=== PATIENT | female | born 1955 | race Caucasian/White ===

== ENCOUNTER → 2021-12-19 17:04 | Outpatient (CLI) | payer MEDICARE, SELFPAY ==
[2021-12-19 18:10] LABS: Basophils % 0.4 % (0.1-2.0); Eosinophils # 0.1 K/mm3 (0.0-0.4); Eosinophils % 0.6 % (0.1-12.0); Hematocrit 39.3 % (37.0-47.0); Hemoglobin 12.7 g/dL (12.2-16.2); Lymphocytes # 1.6 K/mm3 (0.7-4.5); Lymphocytes % 13.4 % (10-50); Mean Corpuscular HGB Conc 32.3 g/dL (31.8-35.4); Mean Corpuscular Hemoglobin 32.3 pg (27.0-31.2); Mean Corpuscular Volume 99.9 fl (81-99); Mean Platelet Volume 7.7 fl (7.4-10.4); Monocytes # 0.3 K/mm3 (0.1-1.0); Monocytes % 2.7 % (1.7-9.3); Platelet Count 268 K/mm3 (142-424); Red Blood Count 3.93 M/mm3 (4.20-5.40); Red Cell Distribution Width 13.6 % (11.5-17.5); White Blood Count 12.1 K/mm3 (4.8-10.8)
[2021-12-19 18:17] LABS: Alanine Aminotransferase 22 U/L (12-78); Albumin/Globulin Ratio 1.1 (1.1-1.8); Alkaline Phosphatase 123 U/L (38-126); Aspartate Amino Transferase 35 U/L (14-36); Bilirubin,Total 0.7 mg/dl (0.2-1.3); Blood Urea Nitrogen 18 mg/dl (7-17); Calcium 9.2 mg/dl (8.4-10.2); Carbon Dioxide 30 mmol/L (22.0-30.0); Chloride 98 mmol/L (98-107); Chol/HDL Ratio 3.6 (1-3.5); Cholesterol 185 mg/dl (140-200); Estimated Glomerular Filt Rate 72 ml/min (>60); GFR (African American) 87 ML/MIN (>60); Globulin 3.7 g/dL (1.3-3.2); Glucose 120 mg/dl (74-100); HDL Cholesterol 52 mg/dl (40-60); Sodium 136 mmol/L (136-145); Total Protein,Serum 7.7 g/dl (6.3-8.2); Triglycerides 135 mg/dl (30-150); VLDL Cholesterol 27 mg/dL (0-40)
[2021-12-19 18:28] LABS: Direct LDL Cholesterol 77.35 mg/dL (100-129)
[2021-12-19 18:33] LABS: Free T4 (Free Thyroxine) 1.11 ng/dl (0.78-2.19)
[2021-12-19 18:48] LABS: Thyroid Stimulating Hormone 0.17 uIU/mL (0.465-4.68)
[2021-12-26 17:13] LABS: 1,25 Dihydroxy Vitamin D 31 pg/mL (.); 1,25-Dihydroxy, Vitamin D-2 11 pg/mL (.); 1,25-Dihydroxy, Vitamin D-3 20 pg/mL (.)
== END ==
PROVIDERS: PCP Emergency Medicine; Visit Provider Emergency Medicine
DX: F32.A Depression, unspecified (principal); J44.9 Chronic obstructive pulmonary disease, unspecified; Z79.899 Other long term (current) drug therapy
CPT/HCPCS: 80053; 80061; 82652; 84439; 84443; 85025

== ENCOUNTER → 2022-04-10 14:10 | Outpatient (CLI) | payer MEDICARE, SELFPAY ==
[2022-04-10 18:09] LABS: Amphetamine/Metha Screen,Urine Negative ng/ml (<1000)
[2022-04-10 18:10] LABS: Barbiturates Screen,Urine Negative ng/ml (<200)
[2022-04-10 18:11] LABS: Benzodiazepines Screen,Urine Negative ng/ml (<200)
[2022-04-10 18:13] LABS: Cannabinoid Screen,Urine Negative ng/ml (<50)
[2022-04-10 18:14] LABS: Cocaine Screen,Urine Negative ng/ml (<300); Methadone Screen,Urine Negative ng/ml (<300)
[2022-04-10 18:15] LABS: Opiate Screen,Urine Negative ng/ml (<300); Phencyclidine Screen,Urine Negative ng/ml (<25)
== END ==
PROVIDERS: PCP Emergency Medicine; Visit Provider Emergency Medicine
DX: Z79.899 Other long term (current) drug therapy (principal)
CPT/HCPCS: 80305

== ENCOUNTER 2022-11-11 15:12 | Emergency (ER) | payer MEDICARE, MEDICAID, SELFPAY ==
[2022-11-11 15:12] VITALS: BP 153/57; PULSE 81; RESP 23; TEMP 36.7; O2SAT 96; BMI 18.5
--- NOTE | 2022-11-11 15:15 | PC.NURSE ---
Notified attending patient is getting more and more pain as she sits. No new orders
--- NOTE | 2022-11-11 15:20 | ECG_ITS ---
APPROVED REPORT Exam: Resting ECG HR:73 bpm ECG Measurements Heart Rate 73 AXES LA 143 P 69 QRSd 110 QRS 82 QT 390 T 73 QTc 415 Conclusion SINUS RHYTHM LEFT ATRIAL abnormality INCOMPLETE RIGHT BUNDLE BRANCH BLOCK [90+ ms QRS DURATION, TERMINAL R IN V1/V2, 40+ ms S IN I/aVL/V4/V5/V6] BORDERLINE ECG UNCONFIRMED REPORT Electronically signed by : Marcelo Treadwell MD 11/12/2022 20:10:08
--- NOTE | 2022-11-11 15:52 | PC.NURSE ---
Attending notified patient still needs to be seen. Attending states, I'm busy right now.
--- NOTE | 2022-11-11 16:00 | HMH.ITSTN ---
went to get patient for xrays and CT and she was crying and in pain from a fall and refused to move until she could have something for pain, I advised nurse and will hold till she is seen by
--- NOTE | 2022-11-11 16:29 | PC.NURSE ---
Patient requesting pain medication prior to having her scans completed. Medicated per JUL. CT notified
--- NOTE | 2022-11-11 16:41 | PC.NURSE ---
Patient has friend at bedside and they are both concerned that the doctor has yet to be at bedside for evaluation. She is asking for stronger pain medications that what has been given. Patient is very upset and requesting to leave AMA. I went out to speak to the attending and he states, I am busying doing something else right now. Patient refused to sign AMA for.
--- NOTE | 2022-11-11 16:48 | PC.NURSE ---
Patient was wheeled out via wheelchair to the vehicle being driven by her friend.
[2022-11-11 16:49] VITALS: BP 150/57; PULSE 79; RESP 22; TEMP 36.7; O2SAT 97
== END 2022-11-11 16:49 | disposition left against medical advice (07) ==
PROVIDERS: Emergency Provider Emergency Medicine; PCP Emergency Medicine
DX: I45.19 Other right bundle-branch block (principal); J44.9 Chronic obstructive pulmonary disease, unspecified; F41.9 Anxiety disorder, unspecified; F32.A Depression, unspecified; F17.210 Nicotine dependence, cigarettes, uncomplicated
CPT/HCPCS: 93005; 99283

== ENCOUNTER 2022-11-19 12:38 | Emergency (ER) | payer MEDICARE, MEDICAID, SELFPAY ==
[2022-11-19 12:56] VITALS: BMI 18.2
[2022-11-19 12:57] VITALS: BP 175/77; PULSE 83; RESP 20; TEMP 36.7; O2SAT 97; BMI 18.2
--- NOTE | 2022-11-19 12:58 | HMH.EDGENADL ---
Discharge Plan Disposition Patient Disposition: Home, Self-Care Condition: Fair Prescriptions Prescriptions: New lidocaine [Lidoderm] 5 % adhesive patch,medicated 1 patch topical DAILY Qty: 15 0RF Rx Instructions: leave on most painful area for up to 12 hrs No Action albuterol sulfate 90 mcg/actuation HFA aerosol inhaler 1 inh IH QID buprenorphine-naloxone 8-2 mg tablet, sublingual 1.5 tab SL DAILY clonazepam [Klonopin] 0.5 mg tablet 0.5 mg PO TID amlodipine [Norvasc] 5 mg tablet 5 mg PO QHS lisinopril 10 mg tablet 10 mg PO QAM bupropion HCl 75 mg tablet 75 mg PO BID Referrals Follow up/Referrals: Tani Flores MD [Primary Care Provider] - See instructions Clinical Impressions Clinical Impression: Multiple fractures of ribs Discharge ED Provider: Jay Price General Adult HPI General Chief complaint: Fall Stated complaint: Fall 11/11 RT rib pain Time Seen by Provider: 11/19/22 13:24 History of Present Illness HPI narrative: This 67-year-old white female who a mechanical ground-level fall 1 week ago and is complaining of right lower rib pain. Patient denies shortness of breath no bruising patient said it hurts like it is broken. Patient says she has broken her ribs before Related Data Home Medications Medication Instructions Recorded Confirmed albuterol sulfate 90 mcg/actuation 1 inh inhalation QID Breathing 12/19/21 11/19/22 aerosol inhaler problems buprenorphine 8 mg-naloxone 2 mg 1.5 tab sublingual DAILY Chronic 12/19/21 11/19/22 sublingual tablet Pain amlodipine 5 mg tablet (Norvasc) 5 mg PO QHS High blood pressure 11/11/22 11/19/22 bupropion HCl 75 mg tablet 75 mg PO BID Mood 11/11/22 11/19/22 clonazepam 0.5 mg tablet (Klonopin) 0.5 mg PO TID Anxiety 11/11/22 11/19/22 lisinopril 10 mg tablet 10 mg PO QAM High blood pressure 11/11/22 11/19/22 Previous Rx's Medication Instructions Recorded lidocaine 5 % topical patch 1 patch topical DAILY #15 ea 11/19/22 (Lidoderm) Allergies Allergy/AdvReac Type Severity Reaction Status Date / Time nalbuphine [From Nubain] Allergy Mild crazy Verified 11/19/22 11:39 N saids Allergy Severe ulcer Uncoded 08/19/22 15:56 PFSH [facility] Disclaimer: The information contained in this section may have been updated after the patient was seen, as this information can be updated by other users. Medical History Anxiety COPD (chronic obstructive pulmonary disease) Depressed Hernia Surgical History H/O section H/O tubal ligation History of cholecystectomy Hx of appendectomy Family History Other Family history of myocardial infarction Social History Smoking Status: Never smoker alcohol intake: never substance use type: former substance user and painkillers current occupational status: disabled Travel in the last 8 weeks: None ROS Obtained: Yes All systems reviewed & no additional complaints except as documented Skin no rash or lesions HEENT no runny nose sore throat Pulmonary no cough or shortness of breath Cardiovascular no chest pain pressure heaviness GI no abdominal pain nausea or vomiting no dysuria pyuria hematuria Musculoskeletal no neck or back pain Endocrine no polydipsia polyuria or polyphasia Psych no SI or HI The rest of the systems were reviewed and found to be negative Physical Exam Narrative Physical exam: Skin: Warm and dry HEENT: Normocephalic atraumatic extract muscles are intact pupils are equal and reactive to light Neck: Supple nontender Lungs: Clear to auscultation Heart: Regular rate and rhythm Chest: There is reproducible right-sided chest wall tenderness no crepitus or step-off lesions Abdomen: NABS soft nontender Extremities: No
--- NOTE | 2022-11-19 12:59 | CT_ITS ---
FINAL REPORT CLINICAL HISTORY: trauma, fall, right sided rib pain FINDINGS: Axial images were obtained from the lung apex to the mid abdomen by computed tomography. Coronal reformatted images were obtained. This study was performed with techniques to keep radiation doses as low as reasonably achievable, (ALARA). Individualized dose reduction techniques using automated exposure control or adjustment of mA and/or kV according to the patient's size were employed. There is no axillary adenopathy. There is no hilar or mediastinal adenopathy. Heart size is normal. There is dense calcification at the aortic arch. There is dense calcification in the coronary arteries. There is no pericardial or pleural effusion. Limited images of the upper abdomen demonstrate a 2.9 x 1.8 cm right adrenal mass favoring an adenoma. There is chronic scarring in the lung bases. No suspicious infiltrate or nodule is identified. There is no pneumothorax. There are nondisplaced fractures of the right 3rd, 4th and 5th anterior ribs. IMPRESSION: Right anterior 3rd, 4th, and 5th rib fractures without pneumothorax. Right adrenal mass favoring an adenoma. Reviewed, Interpreted and Dictated by Bandar Huerta MD Transcribed by Yoandy Rojas Authenticated and . [facility]
[2022-11-19 13:00] VITALS: BP 179/73; PULSE 75; O2SAT 96
[2022-11-19 13:30] VITALS: BP 173/66; PULSE 71; O2SAT 97
[2022-11-19 14:00] VITALS: BP 149/71; PULSE 72; O2SAT 95
[2022-11-19 14:15] VITALS: PULSE 69; O2SAT 95
--- NOTE | 2022-11-19 14:34 | PC.NURSE ---
Rounded on patient; pt sitting up on ED stretcher holding pillow in between her arms. She reports no needs at this time, call ndiaye within reach. She is aware that we are still waiting on xray results at this time.
[2022-11-19 15:28] VITALS: BP 164/97; PULSE 72; RESP 20; TEMP 36.8; O2SAT 96
== END 2022-11-19 15:29 | disposition home or self-care (01) ==
PROVIDERS: Emergency Provider Emergency Medicine; PCP Emergency Medicine
DX: S22.41XA Multiple fractures of ribs, right side, initial encounter for closed fracture (principal); J44.9 Chronic obstructive pulmonary disease, unspecified; F41.9 Anxiety disorder, unspecified; F32.A Depression, unspecified; W19.XXXA Unspecified fall, initial encounter
CPT/HCPCS: 71250; 80053; 80061; 82306; 84439; 84443; 85025; 99284

== ENCOUNTER → 2022-11-19 15:01 | Outpatient (CLI) | payer MEDICARE, MEDICAID, SELFPAY ==
[2022-11-19 12:34] LABS: Basophils # 0.1 K/mm3 (0-0.2); Basophils % 0.7 % (0.1-2.0); Eosinophils # 0.2 K/mm3 (0.0-0.4); Eosinophils % 2.1 % (0.1-12.0); Hemoglobin 13.1 g/dL (12.2-16.2); Lymphocytes # 3.1 K/mm3 (0.7-4.5); Lymphocytes % 36.2 % (10-50); Mean Corpuscular HGB Conc 31.9 g/dL (31.8-35.4); Mean Corpuscular Hemoglobin 31.6 pg (27.0-31.2); Mean Platelet Volume 7.5 fl (7.4-10.4); Monocytes # 0.3 K/mm3 (0.1-1.0); Neutrophils # 4.9 K/mm3 (1.8-7.8); Neutrophils % 58.1 % (37.0-80.0); Platelet Count 326 K/mm3 (142-424); Red Blood Count 4.14 M/mm3 (4.20-5.40); Red Cell Distribution Width 13.4 % (11.5-17.5); White Blood Count 8.5 K/mm3 (4.8-10.8)
[2022-11-19 13:07] LABS: Alanine Aminotransferase 22 U/L (12-78); Albumin Level 4.5 g/dl (3.5-5.0); Albumin/Globulin Ratio 1.4 (1.1-1.8); Alkaline Phosphatase 128 U/L (38-126); Anion Gap 17.8 mEq/L (5-15); Aspartate Amino Transferase 25 U/L (14-36); Bilirubin,Total 0.3 mg/dl (0.2-1.3); Blood Urea Nitrogen 21 mg/dl (7-17); Calcium 9.5 mg/dl (8.4-10.2); Carbon Dioxide 24 mmol/L (22.0-30.0); Chloride 103 mmol/L (98-107); Chol/HDL Ratio 3.4 (1-3.5); Cholesterol 193 mg/dl (140-200); Estimated Glomerular Filt Rate 62 ml/min (>60); GFR (African American) 76 ML/MIN (>60); Globulin 3.3 g/dL (1.3-3.2); Glucose 113 mg/dl (74-100); HDL Cholesterol 56 mg/dl (40-60); Potassium 3.8 mmoL/L (3.5-5.1); Sodium 141 mmol/L (136-145); Total Protein,Serum 7.8 g/dl (6.3-8.2); Triglycerides 138 mg/dl (30-150); VLDL Cholesterol 28 mg/dL (0-40)
[2022-11-19 13:25] LABS: Free T4 (Free Thyroxine) 1.26 ng/dl (0.78-2.19)
[2022-11-19 13:27] LABS: 25-OH Vitamin D, Total < 12.8 ng/mL (30-100)
[2022-11-19 13:28] LABS: Direct LDL Cholesterol 85.89 mg/dL (100-129)
[2022-11-19 13:39] LABS: Thyroid Stimulating Hormone 0.61 uIU/mL (0.465-4.68)
== END ==
PROVIDERS: PCP Emergency Medicine; Visit Provider Emergency Medicine
DX: J44.9 Chronic obstructive pulmonary disease, unspecified (principal); I10 Essential (primary) hypertension; E55.9 Vitamin D deficiency, unspecified
CPT/HCPCS: 80053; 80061; 82306; 84439; 84443; 85025

== ENCOUNTER → 2023-03-07 09:19 | Outpatient (CLI) | payer MEDICARE, MEDICAID, SELFPAY ==
[2023-03-07 22:30] LABS: Amphetamine/Metha Screen,Urine Negative ng/ml (<1000)
[2023-03-07 22:31] LABS: Barbiturates Screen,Urine Negative ng/ml (<200)
[2023-03-07 22:32] LABS: Benzodiazepines Screen,Urine Negative ng/ml (<200); Cannabinoid Screen,Urine Negative ng/ml (<50)
[2023-03-07 22:33] LABS: Cocaine Screen,Urine Negative ng/ml (<300)
[2023-03-07 22:34] LABS: Methadone Screen,Urine Negative ng/ml (<300); Opiate Screen,Urine Negative ng/ml (<300)
[2023-03-07 22:35] LABS: Phencyclidine Screen,Urine Negative ng/ml (<25)
== END ==
PROVIDERS: PCP Emergency Medicine; Visit Provider Emergency Medicine
DX: G89.29 Other chronic pain (principal)
CPT/HCPCS: 80305

== ENCOUNTER → 2023-05-05 23:54 | Outpatient (CLI) | payer MEDICARE, MEDICAID, SELFPAY ==
[2023-05-05 20:36] LABS: Benzodiazepines Screen,Urine Negative ng/ml (<200)
[2023-05-05 20:37] LABS: Amphetamine/Metha Screen,Urine Negative ng/ml (<1000)
[2023-05-05 20:38] LABS: Barbiturates Screen,Urine Negative ng/ml (<200); Cannabinoid Screen,Urine Negative ng/ml (<50)
[2023-05-05 20:39] LABS: Methadone Screen,Urine Negative ng/ml (<300)
[2023-05-05 20:40] LABS: Opiate Screen,Urine Negative ng/ml (<300)
[2023-05-05 20:41] LABS: Phencyclidine Screen,Urine Negative ng/ml (<25)
[2023-05-05 20:53] LABS: Cocaine Screen,Urine Negative ng/ml (<300)
== END ==
PROVIDERS: PCP Family Medicine; Visit Provider Family Medicine
DX: Z79.899 Other long term (current) drug therapy (principal)
CPT/HCPCS: 80305

== ENCOUNTER 2023-08-19 21:36 | Outpatient (CLI) | payer MEDICARE, MEDICAID, SELFPAY ==
[2023-08-19 19:14] LABS: Basophils # 0.1 K/mm3 (0-0.2); Basophils % 1.1 % (0.1-2.0); Eosinophils # 0.1 K/mm3 (0.0-0.4); Eosinophils % 0.8 % (0.1-12.0); Hematocrit 41.3 % (37.0-47.0); Hemoglobin 13.1 g/dL (12.2-16.2); Lymphocytes % 16.7 % (10-50); Mean Corpuscular HGB Conc 31.7 g/dL (31.8-35.4); Mean Corpuscular Hemoglobin 32.8 pg (27.0-31.2); Mean Corpuscular Volume 103.5 fl (81-99); Mean Platelet Volume 9.1 fl (7.4-10.4); Monocytes # 0.5 K/mm3 (0.1-1.0); Monocytes % 3.8 % (1.7-9.3); Neutrophils # 9.5 K/mm3 (1.8-7.8); Neutrophils % 77.6 % (37.0-80.0); Platelet Count 356 K/mm3 (142-424); Red Blood Count 3.99 M/mm3 (4.20-5.40); Red Cell Distribution Width 13.8 % (11.5-17.5); White Blood Count 12.3 K/mm3 (4.8-10.8)
[2023-08-19 19:31] LABS: Chloride 102 mmol/L (98-107)
[2023-08-19 19:32] LABS: Potassium 4.1 mmoL/L (3.5-5.1); Sodium 139 mmol/L (136-145)
[2023-08-19 19:33] LABS: Hemoglobin A1C 5.3 % (4.0-6.0)
[2023-08-19 19:34] LABS: Alkaline Phosphatase 120 U/L (38-126); Bilirubin,Total 0.7 mg/dl (0.2-1.3)
[2023-08-19 19:35] LABS: Albumin Level 4.5 g/dl (3.5-5.0); Albumin/Globulin Ratio 1.2 (1.1-1.8); Anion Gap 13.1 mEq/L (5-15); Calcium 9.5 mg/dl (8.4-10.2); Carbon Dioxide 28 mmol/L (22.0-30.0); Chol/HDL Ratio 5.7 (1-3.5); Cholesterol 235 mg/dl (140-200); Globulin 3.8 g/dL (1.3-3.2); Glucose 114 mg/dl (74-100); HDL Cholesterol 41 mg/dl (40-60); Total Protein,Serum 8.3 g/dl (6.3-8.2); Triglycerides 148 mg/dl (30-150); VLDL Cholesterol 30 mg/dL (0-40)
[2023-08-19 19:52] LABS: 25-OH Vitamin D, Total 23.5 ng/mL (30-100); Direct LDL Cholesterol 107.47 mg/dL (100-129)
[2023-08-19 20:05] LABS: Thyroid Stimulating Hormone 0.94 uIU/mL (0.465-4.68)
[2023-08-19 22:05] LABS: Blood Urea Nitrogen 40 mg/dl (7-17); Estimated Glomerular Filt Rate 18 ml/min (>60); GFR (African American) 21 ML/MIN (>60)
[2023-08-19 23:43] LABS: Aspartate Amino Transferase 24 U/L (14-36)
[2023-08-19 23:51] LABS: Vitamin B12 250 pg/mL (239-931)
[2023-08-19 23:56] LABS: Alanine Aminotransferase 17 U/L (12-78)
== END 2023-08-19 23:59 ==
LOC: LAB.DROPOF 21:36
PROVIDERS: PCP Internal Medicine; Visit Provider Internal Medicine
DX: I10 Essential (primary) hypertension (principal); R73.9 Hyperglycemia, unspecified; J44.9 Chronic obstructive pulmonary disease, unspecified; R53.83 Other fatigue; E55.9 Vitamin D deficiency, unspecified; R80.9 Proteinuria, unspecified
CPT/HCPCS: 80053; 80061; 82043; 82306; 82607; 83036; 84443; 85025

== ENCOUNTER 2023-10-13 09:52 | Outpatient (CLI) | payer MEDICARE, MEDICAID, SELFPAY ==
[2023-10-13 19:05] LABS: Basophils # 0.1 K/mm3 (0-0.2); Basophils % 1.4 % (0.1-2.0); Eosinophils # 0.2 K/mm3 (0.0-0.4); Eosinophils % 2.3 % (0.1-12.0); Hematocrit 37.4 % (37.0-47.0); Hemoglobin 11.9 g/dL (12.2-16.2); Lymphocytes # 2.7 K/mm3 (0.7-4.5); Lymphocytes % 37.8 % (10-50); Mean Corpuscular HGB Conc 31.7 g/dL (31.8-35.4); Mean Corpuscular Hemoglobin 32.7 pg (27.0-31.2); Mean Corpuscular Volume 103.1 fl (81-99); Mean Platelet Volume 8.6 fl (7.4-10.4); Monocytes # 0.2 K/mm3 (0.1-1.0); Monocytes % 3.4 % (1.7-9.3); Neutrophils % 55.1 % (37.0-80.0); Platelet Count 252 K/mm3 (142-424); Red Blood Count 3.63 M/mm3 (4.20-5.40); Red Cell Distribution Width 14.3 % (11.5-17.5); White Blood Count 7.2 K/mm3 (4.8-10.8)
[2023-10-13 19:15] LABS: Alanine Aminotransferase 19 U/L (12-78); Albumin Level 4.3 g/dl (3.5-5.0); Albumin/Globulin Ratio 1.2 (1.1-1.8); Alkaline Phosphatase 119 U/L (38-126); Anion Gap 11.4 mEq/L (5-15); Aspartate Amino Transferase 28 U/L (14-36); Bilirubin,Total 0.5 mg/dl (0.2-1.3); Blood Urea Nitrogen 33 mg/dl (7-17); Calcium 9.7 mg/dl (8.4-10.2); Carbon Dioxide 32 mmol/L (22.0-30.0); Chloride 101 mmol/L (98-107); Estimated Glomerular Filt Rate 41 ml/min (>60); GFR (African American) 49 ML/MIN (>60); Globulin 3.7 g/dL (1.3-3.2); Glucose 94 mg/dl (74-100); Potassium 4.4 mmoL/L (3.5-5.1); Sodium 140 mmol/L (136-145)
== END 2023-10-13 23:59 | disposition home or self-care (01) ==
LOC: LAB.DROPOF 10-15 09:52
PROVIDERS: PCP Internal Medicine; Visit Provider Internal Medicine
DX: I10 Essential (primary) hypertension (principal)
CPT/HCPCS: 80053; 85025

== ENCOUNTER 2024-02-16 19:55 | Outpatient (CLI) | payer MEDICARE, MEDICAID, SELFPAY ==
[2024-02-16 21:20] LABS: Microalbumin/Creatinine Ratio 41.9
[2024-02-16 21:21] LABS: Creatinine,Urine Random 77 mg/dL (Not Estab.)
== END 2024-02-16 23:59 | disposition home or self-care (01) ==
LOC: LAB.DROPOF 19:59
PROVIDERS: PCP Internal Medicine; Visit Provider Internal Medicine
DX: I73.9 Peripheral vascular disease, unspecified (principal)
CPT/HCPCS: 82043; 82570

== ENCOUNTER 2024-03-08 15:32 | Outpatient (CLI) | payer MEDICARE, MEDICAID, SELFPAY ==
[2024-03-08 18:26] LABS: Basophils # 0.1 K/mm3 (0-0.2); Eosinophils # 0.1 K/mm3 (0.0-0.4); Eosinophils % 0.7 % (0.1-12.0); Hematocrit 33.3 % (37.0-47.0); Hemoglobin 10.4 g/dL (12.2-16.2); Lymphocytes # 1.8 K/mm3 (0.7-4.5); Lymphocytes % 25.4 % (10-50); Mean Corpuscular HGB Conc 31.4 g/dL (31.8-35.4); Mean Corpuscular Hemoglobin 31.9 pg (27.0-31.2); Mean Corpuscular Volume 101.7 fl (81-99); Mean Platelet Volume 8.6 fl (7.4-10.4); Monocytes # 0.2 K/mm3 (0.1-1.0); Monocytes % 2.6 % (1.7-9.3); Neutrophils % 70.3 % (37.0-80.0); Platelet Count 291 K/mm3 (142-424); Red Blood Count 3.27 M/mm3 (4.20-5.40); Red Cell Distribution Width 13.6 % (11.5-17.5); White Blood Count 7.1 K/mm3 (4.8-10.8)
[2024-03-08 18:51] LABS: Alanine Aminotransferase 16 U/L (12-78); Albumin Level 4.4 g/dl (3.5-5.0); Albumin/Globulin Ratio 1.4 (1.1-1.8); Alkaline Phosphatase 87 U/L (38-126); Anion Gap 9.9 mEq/L (5-15); Aspartate Amino Transferase 22 U/L (14-36); Bilirubin,Total 0.5 mg/dl (0.2-1.3); Blood Urea Nitrogen 29 mg/dl (7-17); Carbon Dioxide 27 mmol/L (22.0-30.0); Chloride 107 mmol/L (98-107); Estimated Glomerular Filt Rate 41 ml/min (>60); GFR (African American) 49 ML/MIN (>60); Globulin 3.1 g/dL (1.3-3.2); Glucose 118 mg/dl (74-100); Potassium 4.9 mmoL/L (3.5-5.1); Sodium 139 mmol/L (136-145); Total Protein,Serum 7.5 g/dl (6.3-8.2)
== END 2024-03-08 23:59 | disposition home or self-care (01) ==
LOC: LAB.DROPOF 03-09 10:36
PROVIDERS: PCP Internal Medicine; Visit Provider Internal Medicine
DX: Z91.89 Other specified personal risk factors, not elsewhere classified (principal); I10 Essential (primary) hypertension; E55.9 Vitamin D deficiency, unspecified; Z79.899 Other long term (current) drug therapy; Z71.6 Tobacco abuse counseling; M54.16 Radiculopathy, lumbar region; F41.1 Generalized anxiety disorder; F41.0 Panic disorder [episodic paroxysmal anxiety]; F11.90 Opioid use, unspecified, uncomplicated; M81.0 Age-related osteoporosis without current pathological fracture
CPT/HCPCS: 80053; 82043; 85025